=== PATIENT | male | born 1935 | race Caucasian/White ===

== ENCOUNTER → 2018-05-13 | Outpatient (CLI) | payer MEDICARE, OTHER ==
[~2018-05-13] MED LIST: AMLO5 PO; B/P MED; EAR DROPS; HYDACE5 PO; OXYACE5T PO; TRIHYD253B PO; WATER PILL
== END | disposition home or self-care (01) ==
LOC: LAB SHORT 18:24 → LAB EV 18:24
DX: R31.9 Hematuria, unspecified (principal)
CPT/HCPCS: 87077; 87086; 87186

== ENCOUNTER → 2019-07-21 | Outpatient (CLI) | payer MEDICARE, OTHER ==
[2019-07-21 10:06] LABS: BASOPHILS PERCENT AUTO 1 % (0-2); EOSINOPHILS ABSOLUTE AUTO 0.37 K/mm3 (0.00-0.68); EOSINOPHILS PERCENT AUTO 4 % (0-6); Hematocrit 49.7 % (37.0-53.0); Hemoglobin 16.1 g/dL (13.5-17.5); IMMATURE GRAN ABSOLUTE AUTO 0.03 K/mm3 (0.00-0.10); IMMATURE GRAN PERCENT AUTO 0 % (0-1); LYMPHOCYTES ABSOLUTE AUTO 2.38 K/mm3 (0.84-5.20); LYMPHOCYTES PERCENT AUTO 26 % (21-46); MONOCYTES ABSOLUTE AUTO 0.84 K/mm3 (0.16-1.47); MONOCYTES PERCENT AUTO 9 % (4-13); Mean Corpuscular HGB Conc 32.4 g/dL (31.5-36.5); Mean Corpuscular Volume 96 fL (80-100); Mean Platelet Volume 10.5 fL (9.1-12.4); NEUTROPHILS ABSOLUTE AUTO 5.58 K/mm3 (1.96-9.15); NEUTROPHILS PERCENT AUTO 60 % (41-73); Platelet Count 292 K/mm3 (150-400); RDW Coefficient Variation 13.8 % (11.7-14.2); RDW Standard Deviation 48.2 fL (35.1-46.3); Red Blood Cell Count 5.19 M/mm3 (4.30-5.90)
[2019-07-21 10:14] LABS: Bun/Creatinine Ratio 14.4 (12.0-20.0); Calcium, Blood 8.4 mg/dL (8.5-10.1); Creatinine, Blood 1.25 mg/dL (0.60-1.20)
== END | disposition home or self-care (01) ==
LOC: LAB EV 09:32 → LAB SHORT 09:32
PROVIDERS: Family Medicine
DX: R60.9 Edema, unspecified (principal)
CPT/HCPCS: 80048; 85025

== ENCOUNTER → 2020-06-10 | Outpatient (CLI) | payer MEDICARE, OTHER | LOC: LAB SHORT 11:20 | DX: L82.1 Other seborrheic keratosis (principal); L57.8 Other skin changes due to chronic exposure to nonionizing radiation | CPT/HCPCS: 88305 ==

== ENCOUNTER → 2021-01-02 | Outpatient (CLI) | payer OTHER | END | disposition home or self-care (01) | LOC: LAB SHORT 13:24 → LAB 13:24 | DX: R22.40 Localized swelling, mass and lump, unspecified lower limb (principal) | CPT/HCPCS: 83880 ==

== ENCOUNTER → 2021-06-23 | Outpatient (CLI) | payer OTHER | END | disposition home or self-care (01) | LOC: LAB 15:47 → LAB SHORT 15:47 | DX: R31.0 Gross hematuria (principal) | CPT/HCPCS: 87077; 87086; 87186 ==

== ENCOUNTER → 2021-07-10 | Outpatient (CLI) | payer OTHER | END | disposition home or self-care (01) | LOC: PLD 14:51 → LAB SHORT 14:51 → LAB 14:51 | DX: C44.612 Basal cell carcinoma of skin of right upper limb, including shoulder (principal) | CPT/HCPCS: 88305 ==

== ENCOUNTER → 2021-07-24 | Outpatient (CLI) | payer OTHER | END | disposition home or self-care (01) | LOC: LAB 12:24 → LAB SHORT 12:24 | DX: L57.0 Actinic keratosis (principal) | CPT/HCPCS: 88305 ==

== ENCOUNTER → 2021-08-12 | Outpatient (CLI) | payer OTHER | END | disposition home or self-care (01) | LOC: LAB SHORT 08:08 → PLD 08:08 | DX: L57.0 Actinic keratosis (principal); L57.8 Other skin changes due to chronic exposure to nonionizing radiation | CPT/HCPCS: 88305 ==

== ENCOUNTER → 2023-02-16 | Outpatient (CLI) | payer OTHER | LOC: LAB 14:25 → LAB SHORT 14:25 | DX: L08.0 Pyoderma (principal) | CPT/HCPCS: 87070; 87205 ==

== ENCOUNTER 2024-06-02 08:51 | Inpatient (IN) | payer OTHER ==
[~2024-06-02] VITALS: Ht 182.9 cm; Wt 109.9 kg
[2024-06-02] MEDS ORDERED: Ibuprofen 600 MG Tab PO ONE (09:30)
[2024-06-02] MEDS ORDERED: Acetaminophen 500 MG Tab PO ONE (09:45)
[2024-06-02 10:01] LABS: BASOPHILS ABSOLUTE AUTO 0.09 K/mm3 (0.00-0.23); BASOPHILS PERCENT AUTO 1 % (0-2); EOSINOPHILS ABSOLUTE AUTO 0.35 K/mm3 (0.00-0.68); EOSINOPHILS PERCENT AUTO 2 % (0-6); Hemoglobin 13.5 g/dL (13.5-17.5); IMMATURE GRAN ABSOLUTE AUTO 0.06 K/mm3 (0.00-0.10); IMMATURE GRAN PERCENT AUTO 0 % (0-1); LYMPHOCYTES ABSOLUTE AUTO 1.86 K/mm3 (0.84-5.20); LYMPHOCYTES PERCENT AUTO 12 % (21-46); MONOCYTES ABSOLUTE AUTO 1.02 K/mm3 (0.16-1.47); MONOCYTES PERCENT AUTO 7 % (4-13); Mean Corpuscular HGB 31.4 pg (26.0-34.0); Mean Corpuscular HGB Conc 33.8 g/dL (31.5-36.5); Mean Corpuscular Volume 93 fL (80-100); Mean Platelet Volume 10.2 fL (9.1-12.4); NEUTROPHILS ABSOLUTE AUTO 11.63 K/mm3 (1.96-9.15); NEUTROPHILS PERCENT AUTO 78 % (41-73); Platelet Count 372 K/mm3 (150-400); RDW Coefficient Variation 13.3 % (11.7-14.2); RDW Standard Deviation 45.4 fL (35.1-46.3); White Blood Cell Count 15.01 K/mm3 (4.00-11.30)
[2024-06-02 10:46] LABS: Uric Acid, Blood 9.3 mg/dL (3.5-7.2)
[2024-06-02 10:50] LABS: Albumin, Blood 2.7 g/dL (3.4-5.0); Albumin/Globulin Ratio 0.5 (0.8-1.8); Bilirubin, Total 0.8 mg/dL (0.1-1.0); Bun/Creatinine Ratio 16.2 (12.0-20.0); Calcium, Blood 8.1 mg/dL (8.5-10.1); Creatinine, Blood 8.32 mg/dL (0.60-1.20); Potassium, Blood 4.2 mmol/L (3.5-5.5); Total Protein, Blood 7.7 g/dL (6.4-8.2)
[2024-06-02] MEDS ORDERED: HYDROcodone 5-APAP 325 TAB PO PRN (13:00)
[2024-06-02] MEDS ORDERED: NS 1,000 ML IV SCH (13:05)
[2024-06-02] MEDS ORDERED: NS 1,000 ML IV ONE (14:06)
[2024-06-02 16:14] VITALS: BP 153/91
[2024-06-02 17:50] LABS: Albumin, Blood 2.6 g/dL (3.4-5.0); Anion Gap 14 mmol/L (3-11); Blood Urea Nitrogen 149 mg/dL (8-24); Bun/Creatinine Ratio 17.3 (12.0-20.0); CO2, Blood 24 mmol/L (21-32); Calcium, Blood 8.3 mg/dL (8.5-10.1); Chloride, Blood 104 mmol/L (98-108); Creatinine, Blood 8.62 mg/dL (0.60-1.20); Glomerular Filtration Rate 5 (60-); Glucose, Blood 136 mg/dL (70-99); Phosphorus, Blood 8.9 mg/dL (2.5-4.9); Potassium, Blood 4.1 mmol/L (3.5-5.5); Sodium, Blood 138 mmol/L (136-145)
[2024-06-02 18:14] LABS: Influenza A, PCR NEGATIVE (NEGATIVE); Influenza B, PCR NEGATIVE (NEGATIVE); Resp Syncytial Virus, PCR NEGATIVE (NEGATIVE); SARS-Cov-2 (COVID-19) PCR, MMC NEGATIVE (NEGATIVE)
--- NOTE | 2024-06-02 18:29 | NUR ---
PT ADMITTED TODAY FROM ER. DR. LOPEZ FOLLOWING. ROY PLACED D/T RETENTION, HEMATURIA NOTED. 24 HOUR URINE COLLECTION BEGAN AT 1730. SR IN 80S ON TELE. PT C/O R ANKLE PAIN AND BACK PAIN, REFUSED PAIN MEDICATIONS. PT A&OX4, QUILEUTE. 1 LOOSE STOOL AT TRANSFER, HAT PLACED IN TOILET FOR STOOL SAMPLE WITH NEXT BM. PT 1PA WITH FWW TO TOILET. PRODUCTIVE COUGH NOTED, FLU, COVID, AND RSV NEGATIVE. PT ORIENTED TO ROOM, CALL LIGHT IN REACH.
[2024-06-02 19:58] VITALS: BP 140/78
[2024-06-03 00:03] VITALS: BP 141/79
--- NOTE | 2024-06-03 05:25 | NUR ---
SHIFT SUMMARY ADMITTED FOR ACUTE RENAL FAILURE. FULL CODE. IV FLUID INFUSING. ROY IN PLACE. 24 HOUR URINE PROTEIN COLLECTION IN PROCESS. TELEMETRY: NSR @ [address] LOPEZ IS RENAL CONSULT. HE IS A&O X4, STANDBY ASSIST W/FWW. ON RA. RENAL DIET.
[2024-06-03 05:30] VITALS: BP 127/79
[2024-06-03 05:43] LABS: Hematocrit 34.8 % (37.0-53.0); Hemoglobin 11.7 g/dL (13.5-17.5)
[2024-06-03 06:12] LABS: Magnesium, Blood 2.4 mg/dL (1.6-2.4)
[2024-06-03 06:29] LABS: Albumin, Blood 2.4 g/dL (3.4-5.0); Anion Gap 15 mmol/L (3-11); Blood Urea Nitrogen 139 mg/dL (8-24); Bun/Creatinine Ratio 16.4 (12.0-20.0); CO2, Blood 19 mmol/L (21-32); Calcium, Blood 7.7 mg/dL (8.5-10.1); Chloride, Blood 105 mmol/L (98-108); Glomerular Filtration Rate 6 (60-); Glucose, Blood 120 mg/dL (70-99); Potassium, Blood 3.9 mmol/L (3.5-5.5); Sodium, Blood 135 mmol/L (136-145)
[2024-06-03 06:30] LABS: Creatinine, Blood 8.49 mg/dL (0.60-1.20)
[2024-06-03 07:01] LABS: BASOPHILS ABSOLUTE AUTO 0.07 K/mm3 (0.00-0.23); BASOPHILS PERCENT AUTO 1 % (0-2); EOSINOPHILS ABSOLUTE AUTO 0.41 K/mm3 (0.00-0.68); EOSINOPHILS PERCENT AUTO 4 % (0-6); Hematocrit 34.7 % (37.0-53.0); Hemoglobin 11.6 g/dL (13.5-17.5); IMMATURE GRAN ABSOLUTE AUTO 0.05 K/mm3 (0.00-0.10); IMMATURE GRAN PERCENT AUTO 0 % (0-1); LYMPHOCYTES ABSOLUTE AUTO 2.04 K/mm3 (0.84-5.20); LYMPHOCYTES PERCENT AUTO 18 % (21-46); MONOCYTES ABSOLUTE AUTO 1.06 K/mm3 (0.16-1.47); MONOCYTES PERCENT AUTO 9 % (4-13); Mean Corpuscular HGB 30.9 pg (26.0-34.0); Mean Corpuscular HGB Conc 33.4 g/dL (31.5-36.5); Mean Corpuscular Volume 92 fL (80-100); Mean Platelet Volume 10.5 fL (9.1-12.4); NEUTROPHILS PERCENT AUTO 69 % (41-73); Platelet Count 340 K/mm3 (150-400); RDW Coefficient Variation 13.2 % (11.7-14.2); RDW Standard Deviation 45.1 fL (35.1-46.3); Red Blood Cell Count 3.76 M/mm3 (4.30-5.90); White Blood Cell Count 11.63 K/mm3 (4.00-11.30)
[2024-06-03 07:28] VITALS: BP 128/99
[2024-06-03] MEDS ORDERED: Tamsulosin HCl 0.4 MG Cap PO SCH (09:00)
[2024-06-03] MEDS ORDERED: AmLODIPine Besylate 5 MG Tab PO SCH (09:00)
[2024-06-03] MEDS ORDERED: Heparin Sodium,Porcine 5,000 UNIT/0.5 ML SDV SC SCH (09:00)
[2024-06-03] MEDS ORDERED: FentaNYL Citrate 50 MCG/ML 2 ML Injection IV PRN (10:55)
[2024-06-03] MEDS ORDERED: Calcium Acetate 667 MG Gel Cap PO SCH (12:30)
[2024-06-03 16:26] VITALS: BP 137/91
--- NOTE | 2024-06-03 18:50 | NUR ---
PT ADMITTED 06/02/24 FOR [facility]. ROY IN PLACE DRAINING PINK/RED URINE, 24 HOUR URINE COLLECTION IN PROCESS TO END AT 0540. DR. LOPEZ IS HRIS DEVELOPER CONSULTING. IV FLUIDS INFUSING AT 75/HR. PT AxoX4, VSS, RA, SR AT 80 WITH PVC.
[2024-06-03 19:54] VITALS: BP 136/78
[2024-06-03] MEDS ORDERED: Sodium Bicarbonate 650 MG Tab PO SCH (21:00)
[2024-06-03 23:40] VITALS: BP 132/79
[2024-06-04 03:28] VITALS: BP 131/75
[2024-06-04 04:44] LABS: Hematocrit 34.3 % (37.0-53.0); Hemoglobin 11.8 g/dL (13.5-17.5)
[2024-06-04 05:21] LABS: Magnesium, Blood 2.3 mg/dL (1.6-2.4)
--- NOTE | 2024-06-04 05:25 | NUR ---
SHIFT SUMMARY NOC PT A/O X 4. PLEASANT AND COOPERATIVE WITH CARE. VSS. PT HAS ROY IN PLACE AND 24 HR URINE COLLECTION RESULTS PENDING, URINE STILL PINK/RED IN COLOR. PT HEPARIN HELD AND DC PER DR LOPEZ. PT ON TELE SINUS RHYTHM/BBB IN 'S. PT PAIN HAS BEEN TOLERABLE 06/08 AND DECLINING NEED FOR PAIN RX. PT R ANKLE STILL SWOLLEN ON BOTH SIDES IVF NS @ 75 ML/HR. PT CURRENTLY RESTING WITH BED IN LOWEST POSITION, AND CALL LIGHT WITHIN REACH.
[2024-06-04 05:44] LABS: Albumin, Blood 2.2 g/dL (3.4-5.0); Anion Gap 15 mmol/L (3-11); Blood Urea Nitrogen 133 mg/dL (8-24); Bun/Creatinine Ratio 16.2 (12.0-20.0); CO2, Blood 18 mmol/L (21-32); Calcium, Blood 7.5 mg/dL (8.5-10.1); Chloride, Blood 106 mmol/L (98-108); Creatinine, Blood 8.23 mg/dL (0.60-1.20); Glomerular Filtration Rate 6 (60-); Glucose, Blood 127 mg/dL (70-99); Potassium, Blood 4.1 mmol/L (3.5-5.5); Sodium, Blood 135 mmol/L (136-145)
[2024-06-04 07:21] VITALS: BP 151/81
[2024-06-04] MEDS ORDERED: Sodium Bicarb 8.4% Inj 100 MEQ in Sodium Chloride 0.45% 1,000 ML IV SCH (09:30)
--- NOTE | 2024-06-04 12:37 | NUR ---
NOTE: THIS RN NOTIFIED BY GARETT [employer] AT 1238. PER GARETT, SHE REVEIEWED PATIENT RATE/RHYTHM STRIPS AND FOUND OUT THAT PATIENT CONVERTED TO A-FIB AT 1030 HR IN THE LOW 110'S BPM. NOTIFIED DR. BALTAZAR, NO NEW ORDERS AT THIS TIME.
[2024-06-04 16:42] LABS: BASOPHILS ABSOLUTE AUTO 0.06 K/mm3 (0.00-0.23); BASOPHILS PERCENT AUTO 0 % (0-2); EOSINOPHILS ABSOLUTE AUTO 0.36 K/mm3 (0.00-0.68); EOSINOPHILS PERCENT AUTO 2 % (0-6); Hematocrit 35.9 % (37.0-53.0); IMMATURE GRAN ABSOLUTE AUTO 0.09 K/mm3 (0.00-0.10); IMMATURE GRAN PERCENT AUTO 1 % (0-1); LYMPHOCYTES ABSOLUTE AUTO 2.84 K/mm3 (0.84-5.20); LYMPHOCYTES PERCENT AUTO 17 % (21-46); MONOCYTES ABSOLUTE AUTO 1.13 K/mm3 (0.16-1.47); MONOCYTES PERCENT AUTO 7 % (4-13); Mean Corpuscular HGB 30.9 pg (26.0-34.0); Mean Corpuscular HGB Conc 33.4 g/dL (31.5-36.5); Mean Corpuscular Volume 93 fL (80-100); Mean Platelet Volume 10.2 fL (9.1-12.4); NEUTROPHILS ABSOLUTE AUTO 12.06 K/mm3 (1.96-9.15); NEUTROPHILS PERCENT AUTO 73 % (41-73); Platelet Count 381 K/mm3 (150-400); RDW Coefficient Variation 13.2 % (11.7-14.2); RDW Standard Deviation 44.3 fL (35.1-46.3); Red Blood Cell Count 3.88 M/mm3 (4.30-5.90); White Blood Cell Count 16.54 K/mm3 (4.00-11.30)
[2024-06-04 18:29] VITALS: BP 156/99
--- NOTE | 2024-06-04 18:42 | NUR ---
SHIFT SUMMARY: PATIENT A/OX4, PLEASANT AND COOPERATIVE c CARE. PATIENT REPORTS CHEST PRESSURE D/T CHEST CONGESTIONS AND COUGHING A LOT, BUT DENIES CP T/O SHIFT . PATIENT ON TELE, AFIB HR IN THE 110'S-120'S BPM, TACH UP TO 130'S TO 150'S BRIEFLY AND BACK DOWN TO 110'S BPM. DR. BALTAZAR NOTIFIED. AT AROUND 1400'S PATIENT SAT UP ON THE EOB, ROY STARTED LEAKING, DRAINING MAROON COLOR URINE c LARGE AMOUNT OF CLOTS. NOTIFIED DR. BALTAZAR, RECEIVED ORDER TO START CBI. PATIENT ROY REMOVED AND CHANGED TO 18 FR, 3 WAY ROY c 30 MLS BALLOON FOR CBI PER ORDER. PATIENT REPORTS PRESSURE, PAIN AND DISCOMFORT TO SUPRAPUBIC AREA/PENIS. PER PATIENT "I FEEL LIKE I STILL NEED TO PEE." PERFORMED BLADDER SCAN, APPEARS 111 MLS IN BLADDER. NOTIFIED DR. BALTAZAR AND HE DID ROUND THE PATIENT AROUND 1600'S, RECEIVED VO FOR STAT BLADDER US. PATIENT BLADDER ULTRASOUND DONE, AWAITING FOR RESULT. PATIENT REPORTS PAIN TO "PENIS", MEDICATED FOR PAIN PER EMAR c MOD EFFECT. PATIENT [address] WAY ROY c CBI, PATENT DRAINING RED COLOR URINE c NO CLOTS AT THIS TIME. BEDSIDE REPORTS GIVEN TO ARNULFO CEDEÑO. CALL LIGHT IN REACH.
--- NOTE | 2024-06-04 19:43 | NUR ---
SPOKE WITH ASIA SILK SCREEN ETCHER - HOSPITALIST CONCERNING PT'S CBI AND DISCOMFORT. REQUESTED CONSIDERATION OF B AND O SUPPUSITORY FOR PT. PENDING ORDERS.
[2024-06-04] MEDS ORDERED: Belladonna Alkaloids/Opium 60 MG Sup PR ONE (20:55)
[2024-06-04 23:46] VITALS: BP 139/88
[2024-06-05] VITALS (16 sets, daily range): BP systolic 115–157; BP diastolic 66–93
[2024-06-05] MEDS ORDERED: Guaifenesin/Dextromethorphan Syrup 5 ML UDC PO PRN (02:15)
[2024-06-05] MEDS ORDERED: Diazepam 5 MG / ML 2ML SYR IV ONE (02:45)
[2024-06-05] MEDS ORDERED: FentaNYL Citrate 50 MCG/ML 2 ML Injection IV PRN (02:46)
--- NOTE | 2024-06-05 05:22 | NUR ---
SHIFT SUMMARY NOC PT A/O X 4. PLEASANT AND COOPERATIVE WITH CARE. VSS. AT BEGINNING OF SHIFT PT WAS DIAPHORETIC AND CLAMMY IN APPEARANCE AND HAD C/O NOT PRESSURE IN BLADDER. PT BEGAN CBI YESTERDAY. DISCUSSED WITH MOTOR HOTEL MANAGER AND CBI CLAMPED FOR 5 MINUTES AND PT BLADDER SCANNED AND FOUND 523 ML. MANUAL SYRINGE IRRIGATION PERFORMED TO DISLODGE BLOOD CLOTS, BUT WAS UNABLE TO DUE TO 18 HONG KONGER CATHETER. 20 HONG KONGER CATHETER INSERTED AND BLOOD CLOTS WERE ABLE TO BE DISLODGED WITH AGRESSIVE IRRIGATION, PT WAS IN DISCOMFORT AND HAD C/O OF BLADDER SPASMS. HOSPITALIST NOTIFIED AND SPASMS AND ALSO OF RESULTS OF BLADDER US PERFORMED IN AFTERNOON THAT SHOWED NEW HEMMORHAGIC FLUID >1500 ML. MOTOR HOTEL MANAGER RECOMMENDED BELLADONNA & OPIUM SUPPOSITORIES TO RELIEVE MUSCHLE SPASMS AND RELAYED THIS TO HOSPITALIST WHO PUT IN ONE TIME ORDER. B&D SUPPOSITORY PROVIDED RELIEF. BLOOD CLOTS HAVE BEEN DISLODGED MULTIPLE TIMES DURING SHIFT, WHEN PT REPORTS SEVERE DISCOMFORT IN BLADDER. PT MEDICATED FOR BLADDER PAIN AND GIVEN ONE TIME DOSE OF DIAZEPAM IV 2.5 MG FOR SLEEP AND SPASMS. ON TELE AFIB IN 80'S, BUT CONVERTED BACK TO SINUS RHYTHM IN 70'S THIS AM. 1/2 NS BICARB INFUSING @ 50 ML/HR. PT CURRENTLY RESTING WITH BED IN LOWEST POSITION, AND CALL LIGHT WITHIN REACH.
[2024-06-05 06:02] LABS: Hemoglobin 10.6 g/dL (13.5-17.5)
[2024-06-05 06:52] LABS: Magnesium, Blood 2.5 mg/dL (1.6-2.4)
[2024-06-05 06:57] LABS: Albumin, Blood 2.3 g/dL (3.4-5.0); Anion Gap 15 mmol/L (3-11); Blood Urea Nitrogen 133 mg/dL (8-24); Bun/Creatinine Ratio 14.1 (12.0-20.0); CO2, Blood 20 mmol/L (21-32); Calcium, Blood 8.2 mg/dL (8.5-10.1); Chloride, Blood 104 mmol/L (98-108); Cholesterol 91 mg/dL (50-200); Creatinine, Blood 9.41 mg/dL (0.60-1.20); Glomerular Filtration Rate 5 (60-); Glucose, Blood 197 mg/dL (70-99); Phosphorus, Blood 8.1 mg/dL (2.5-4.9); Potassium, Blood 4.6 mmol/L (3.5-5.5); Sodium, Blood 134 mmol/L (136-145); Triglycerides 81 mg/dL (30-160)
--- NOTE | 2024-06-05 07:35 | NUR ---
NOTIFIED DR LOPEZ OF CRITICAL CREATNINE 9.4, AND PHOSPHORUS 8.1. DR LOPEZ WANTS IR CONSULT WITH DR GIBBONS FOR PERM CATH PLACEMENT AND DIALYSIS FOR TODAY. NURSE TO CONTACT DIALYSIS NURSE ONCE PERM CATH PLACED. IVF ALSO DC AND PT TO BE MADE NPO.
[2024-06-05] MEDS ORDERED: NS 250 ML IV ONE (11:04)
[2024-06-05] MEDS ORDERED: NS 500 ML IV ONE (11:04)
[2024-06-05] MEDS ORDERED: Heparin Sodium 1000 Units/ML 10ML MDV ONE ×2 (11:04→14:56)
[2024-06-05] MEDS ORDERED: NS 1,000 ML IV ONE (14:15)
[2024-06-05] MEDS ORDERED: Midazolam HCl 1MG / ML 2ML Vial ONE (14:15)
[2024-06-05] MEDS ORDERED: FentaNYL Citrate 50 MCG/ML 2 ML Injection ONE (14:15)
--- NOTE | 2024-06-05 14:26 | NUR ---
TO [facility] VIA BED FOR DIALYSIS CATHETER PLACEMENT
--- NOTE | 2024-06-05 17:33 | NUR ---
SHIFT SUMMARY: PT A&O X4. PLEASANT AND COOPERATIVE WITH CARE. CBI CONTINUED THIS SHIFT WIDE OPEN. PER DR. LOPEZ, PT TO GET PERMACATH TODAY THEN NEEDING DIALYSIS POST PLACEMENT. SPOKE WITH DR. HILLIARD PRIOR TO PERMACATH INSERTION STATING HE WOULD LIKE CT ABDOMEN COMPLETED. STAT ORDER PLACED AND COMPLETED SHOWING LARGE AMOUNT OF HEMATOMA/HEMORRHAGE. SMALL CLOTS NOTED FROM ROY THIS SHIFT BUT MOSTLY DRAINING CLEAR ONCE CBI IS WIDE OPEN. PT PLACED ON 2L THIS SHIFT D/T 02 IN HIGH 80'S TO LOW 90'S. DIALYSIS COMPLETED WITH ONE LITER OFF. CALL LIGHT IN REACH. BED IN LOWEST POSITION. WILL RESTART CBI ONCE PT RETURNS.
[2024-06-05] MEDS ORDERED: Lidocaine 2% Jelly Uro-Jet UR PRN (19:40)
[2024-06-06] VITALS (18 sets, daily range): BP systolic 94–158; BP diastolic 54–95
--- NOTE | 2024-06-06 05:58 | NUR ---
PT CBI CONTINUES TO BE WIDE OPEN. NO CLOTS DURING SHIFT. COLORING OF URINE HAS DARKENED. OUTPUT CHARTED, SEE I&O CHARTING. VSS. TELEMETRY NSR RATE IN THE 80S THROUGHOUT SHIFT.
[2024-06-06] MEDS ORDERED: NS 1,000 ML BAG IR SCH (07:35)
[2024-06-06 07:59] LABS: BASOPHILS PERCENT AUTO 0 % (0-2); EOSINOPHILS ABSOLUTE AUTO 0.12 K/mm3 (0.00-0.68); EOSINOPHILS PERCENT AUTO 0 % (0-6); Hematocrit 30.2 % (37.0-53.0); Hemoglobin 10.3 g/dL (13.5-17.5); IMMATURE GRAN ABSOLUTE AUTO 0.25 K/mm3 (0.00-0.10); IMMATURE GRAN PERCENT AUTO 1 % (0-1); LYMPHOCYTES ABSOLUTE AUTO 1.39 K/mm3 (0.84-5.20); LYMPHOCYTES PERCENT AUTO 5 % (21-46); MONOCYTES ABSOLUTE AUTO 1.31 K/mm3 (0.16-1.47); MONOCYTES PERCENT AUTO 4 % (4-13); Mean Corpuscular HGB 31.4 pg (26.0-34.0); Mean Corpuscular HGB Conc 34.1 g/dL (31.5-36.5); Mean Corpuscular Volume 92 fL (80-100); Mean Platelet Volume 10.4 fL (9.1-12.4); NEUTROPHILS ABSOLUTE AUTO 27.57 K/mm3 (1.96-9.15); NEUTROPHILS PERCENT AUTO 90 % (41-73); Platelet Count 416 K/mm3 (150-400); RDW Coefficient Variation 13.1 % (11.7-14.2); RDW Standard Deviation 44.3 fL (35.1-46.3); Red Blood Cell Count 3.28 M/mm3 (4.30-5.90); White Blood Cell Count 30.74 K/mm3 (4.00-11.30)
[2024-06-06 08:29] LABS: Bun/Creatinine Ratio 12.2 (12.0-20.0); Calcium, Blood 7.9 mg/dL (8.5-10.1); Creatinine, Blood 8.66 mg/dL (0.60-1.20); Potassium, Blood 4.5 mmol/L (3.5-5.5)
[2024-06-06] MEDS ORDERED: Bumetanide 1 MG Tab PO SCH (09:00)
[2024-06-06] MEDS ORDERED: Piperacillin/Tazobactam Sod 2.25 GM in NS 50 ML IV SCH (09:29)
--- NOTE | 2024-06-06 15:30 | NUR ---
CONTINUOUS BLADDER IRRIGATION TOTAL INPUT MY SHIFT 6100 AND TOTAL OUTPUT WAS 7200
--- NOTE | 2024-06-06 15:30 | NUR ---
SHIFT SUMMARY PATIENT WAS SENT DOWN FROM MEDICAL FLOOR DUE TO INCREASED O2 NEEDS. HE IS A0X4 ABLE TO MAKE HIS NEEDS KNOWN. HE DENIES CHEST PAIN. HE DOES HAVE SOB REQUIRING 8-10L NC TO MAINTAIN HIS O2 SATS ABOVE 92%. HE WAS ON THE CONTINUOUS BLADDER IRRIGATION AND IT WAS ADJUSTED TO KEEP THE URINE OUTPUT LIGHT PINK. HE HAD ORDER TO BE TRANSPORTED TO [facility] [place] [facility] [phone] [place] WILL GO INTO ROOM 480. ALL QUESTIONS WERE ANSWERED AND OUR PHONE NUMBER WAS GIVEN IF THERE WAS ANY QUESTIONS
[2024-06-06] MEDS ORDERED: Piperacillin/Tazobactam Sod 2.25 GM in NS 50 ML IV ONE (16:00)
--- NOTE | 2024-06-06 19:28 | NUR ---
SHIFT SUMMARY PATIENT WAS SENT DOWN FROM MEDICAL FLOOR DUE TO INCREASED O2 NEEDS. HE IS A0X4 ABLE TO MAKE HIS NEEDS KNOWN. HE DENIES CHEST PAIN. HE DOES HAVE SOB REQUIRING 8-10L NC TO MAINTAIN HIS O2 SATS ABOVE 92%. HE WAS ON THE CONTINUOUS BLADDER IRRIGATION AND IT WAS ADJUSTED TO KEEP THE URINE OUTPUT LIGHT PINK. HE HAD ORDER TO BE TRANSP[place] [facility] [place] [facility] [place] [facility] [place] WILL GO INTO ROOM 480. ALL QUESTIONS WERE ANSWERED AND OUR PHONE NUMBER WAS GIVEN IF THERE WAS ANY QUESTIONS
[2024-06-06] MEDS ORDERED: Piperacillin/Tazobactam Sod 4.5 GM in NS 100 ML IV SCH (21:00)
[2024-06-07 14:47] LABS: GBM, IGG MULTIPLEX BEAD ASSAY 0 AU/mL (0-19); MYELOPEROXIDASE (MPO) AB,IGG 0 AU/mL (0-19); SERINE PROTEINASE 3 PR3 AB,IGG 0 AU/mL (0-19)
[2024-06-08 10:10] LABS: ANA PATTERN Speckled; ANTINUCLEAR AB (ANA),HEP-2,IGG Detected (<1:80)
[2024-06-08 15:41] LABS: HEPATITIS B SURFACE ANTIGEN Negative (Negative)
[2024-06-08 16:09] LABS: HEPATITIS B SURFACE ANTIBODY <3.10 IU/L
[2024-06-08 16:18] LABS: HBV CORE ANTIBODIES,TOTAL Negative (Negative)
== END 2024-06-06 16:04 | disposition short-term general hospital (02) | DRG 673 ==
LOC: ER 08:51 → ERHOLD 13:02 → MEDS 13:02 → PCU 06-06 11:59
PROVIDERS: Emergency Medicine; Family Medicine; Internal Medicine Nephrology; ADMIT Internal Medicine
PROC: 5A1D70Z Performance of Urinary Filtration, Intermittent, Less than 6 Hours Per Day (ICD-10-PCS; principal; 2024-06-05)
PROC: 0T9B70Z Drainage of Bladder with Drainage Device, Via Natural or Artificial Opening (ICD-10-PCS; 2024-06-05)
PROC: 0JH63XZ Insertion of Tunneled Vascular Access Device into Chest Subcutaneous Tissue and Fascia, Percutaneous Approach (ICD-10-PCS; 2024-06-05)
PROC: 02HV33Z Insertion of Infusion Device into Superior Vena Cava, Percutaneous Approach (ICD-10-PCS; 2024-06-05)
PROC: B5181ZA Fluoroscopy of Superior Vena Cava using Low Osmolar Contrast, Guidance (ICD-10-PCS; 2024-06-05)
PROC: 3E03329 Introduction of Other Anti-infective into Peripheral Vein, Percutaneous Approach (ICD-10-PCS; 2024-06-06)
DX: N17.9 Acute kidney failure, unspecified (principal); A41.9 Sepsis, unspecified organism; R65.20 Severe sepsis without septic shock; J18.9 Pneumonia, unspecified organism; J96.01 Acute respiratory failure with hypoxia; D62 Acute posthemorrhagic anemia; E87.1 Hypo-osmolality and hyponatremia; E87.20 Acidosis, unspecified; I50.32 Chronic diastolic (congestive) heart failure; I13.2 Hypertensive heart and chronic kidney disease with heart failure and with stage 5 chronic kidney disease, or end stage renal disease; Z99.2 Dependence on renal dialysis; N18.6 End stage renal disease; M10.9 Gout, unspecified; E11.22 Type 2 diabetes mellitus with diabetic chronic kidney disease; K21.9 Gastro-esophageal reflux disease without esophagitis; J44.9 Chronic obstructive pulmonary disease, unspecified; D63.1 Anemia in chronic kidney disease; E88.09 Other disorders of plasma-protein metabolism, not elsewhere classified; R97.20 Elevated prostate specific antigen [PSA]; E83.39 Other disorders of phosphorus metabolism; R31.0 Gross hematuria; N13.9 Obstructive and reflux uropathy, unspecified; N40.1 Benign prostatic hyperplasia with lower urinary tract symptoms; N13.30 Unspecified hydronephrosis; R33.8 Other retention of urine; D72.829 Elevated white blood cell count, unspecified; Z79.891 Long term (current) use of opiate analgesic; Z98.890 Other specified postprocedural states; Z79.899 Other long term (current) drug therapy; Z85.528 Personal history of other malignant neoplasm of kidney; Z90.5 Acquired absence of kidney; Z90.49 Acquired absence of other specified parts of digestive tract; Z86.69 Personal history of other diseases of the nervous system and sense organs
CPT/HCPCS: 0241U; 36415; 36558; 51700; 51702; 71045; 71046; 73610; 74176; 76770; 76857; 76937; 77001; 80048; 80053; 80069; 81050; 82465; 82550; 82570; 82947; 83516; 83605; 83735; 83880; 84145; 84156; 84300; 84478; 84550; 85014; 85018; 85025; 86039; 86334; 86704; 87040; 87340; 94760; 99285-25; A9270; C1750; C1769; G0103; J1644; J2250; J2543; J3010; J3360; J7030; J7040; J7050; Q9967

== ENCOUNTER → 2024-06-30 | Outpatient (CLI) | payer OTHER ==
[2024-06-30 15:35] LABS: BASOPHILS ABSOLUTE AUTO 0.08 K/mm3 (0.00-0.23); BASOPHILS PERCENT AUTO 1 % (0-2); EOSINOPHILS ABSOLUTE AUTO 0.31 K/mm3 (0.00-0.68); EOSINOPHILS PERCENT AUTO 5 % (0-6); Hematocrit 29.1 % (37.0-53.0); Hemoglobin 9.4 g/dL (13.5-17.5); IMMATURE GRAN ABSOLUTE AUTO 0.01 K/mm3 (0.00-0.10); IMMATURE GRAN PERCENT AUTO 0 % (0-1); LYMPHOCYTES PERCENT AUTO 19 % (21-46); MONOCYTES ABSOLUTE AUTO 0.68 K/mm3 (0.16-1.47); MONOCYTES PERCENT AUTO 10 % (4-13); Mean Corpuscular HGB 31.1 pg (26.0-34.0); Mean Corpuscular HGB Conc 32.3 g/dL (31.5-36.5); Mean Corpuscular Volume 96 fL (80-100); Mean Platelet Volume 10.3 fL (9.1-12.4); NEUTROPHILS ABSOLUTE AUTO 4.49 K/mm3 (1.96-9.15); NEUTROPHILS PERCENT AUTO 65 % (41-73); Platelet Count 367 K/mm3 (150-400); RDW Coefficient Variation 13.7 % (11.7-14.2); Red Blood Cell Count 3.02 M/mm3 (4.30-5.90); White Blood Cell Count 6.87 K/mm3 (4.00-11.30)
== END ==
LOC: LAB 14:51 → LAB SHORT 14:51
PROVIDERS: Physician Assistant
DX: R31.9 Hematuria, unspecified (principal)
CPT/HCPCS: 85025

== ENCOUNTER 2024-09-25 06:33 | Day surgery (SDC) | payer OTHER ==
[~2024-09-25] VITALS: Ht 182.9 cm; Wt 101.6 kg
[2024-09-25] VITALS (8 sets, daily range): BP systolic 135–192; BP diastolic 84–117
[2024-09-25] MEDS ORDERED: AVALIDE 300-121 EACH PO (07:20)
[2024-09-25] MEDS ORDERED: Calcium Carbon500 MG PO (07:20)
[2024-09-25] MEDS ORDERED: PYRI100 PO (07:21)
[2024-09-25] MEDS ORDERED: Heparin Sodium 1000 Units/ML 10ML MDV ONE (09:51)
[2024-09-25] MEDS ORDERED: NS 250 ML IV ONE (09:51)
[2024-09-25] MEDS ORDERED: Heparin Sodium 10,000 Units/ML 1ML MDV ONE (10:17)
--- NOTE | 2024-09-25 10:41 | NUR ---
Pt back from procedure to recovery room. sitting up in recliner. alert and oriented.
--- NOTE | 2024-09-25 11:15 | NUR ---
PT DIALYSIS PORT REDRESSED. C/D/I. NO BLEEDING NOTED. PRESSURE DSG APPLIED . PT AND SON VERBALIZES UNDERSTANDING WRITTEN AND VERABAL INSTRUCTIONS. PT DENIES QUESTIONS OR CONCERNS. VSS. TAYLOR.
--- NOTE | 2024-09-25 11:35 | NUR ---
PT SON HERE, PT DRESSED AND WHEELED OUT OF HOSPITAL.
== END 2024-09-25 11:35 | disposition home or self-care (01) ==
LOC: MHTC 06:33
DX: I12.0 Hypertensive chronic kidney disease with stage 5 chronic kidney disease or end stage renal disease (principal); E11.22 Type 2 diabetes mellitus with diabetic chronic kidney disease; N18.6 End stage renal disease; T82.41XA Breakdown (mechanical) of vascular dialysis catheter, initial encounter; I70.0 Atherosclerosis of aorta; I45.10 Unspecified right bundle-branch block; I71.9 Aortic aneurysm of unspecified site, without rupture; I87.2 Venous insufficiency (chronic) (peripheral); K21.9 Gastro-esophageal reflux disease without esophagitis; N40.0 Benign prostatic hyperplasia without lower urinary tract symptoms; E78.5 Hyperlipidemia, unspecified; J44.9 Chronic obstructive pulmonary disease, unspecified; Z87.891 Personal history of nicotine dependence; Z79.899 Other long term (current) drug therapy; Z88.8 Allergy status to other drugs, medicaments and biological substances; Z90.5 Acquired absence of kidney; Z99.2 Dependence on renal dialysis; Y81.1 Therapeutic (nonsurgical) and rehabilitative general- and plastic-surgery devices associated with adverse incidents
CPT/HCPCS: C1750; C1769; J1644; J7050; Q9967

== ENCOUNTER 2024-10-06 18:03 | Observation (INO) | payer OTHER ==
[~2024-10-06] VITALS: Ht 182.9 cm; Wt 99.3 kg
[~2024-10-06 18:03] MED LIST changes: +AVALIDE 300-121 EACH PO; +Calcium Carbon500 MG PO; +NS 1,000 ML IV SCH; +PYRI100 PO
[2024-10-06] MEDS ORDERED: Ondansetron HCl 2 MG / ML 2ML Vial ONE (18:34)
[2024-10-06] MEDS ORDERED: NS 1,000 ML IV ONE (18:34)
[2024-10-06 19:01] LABS: BASOPHILS ABSOLUTE AUTO 0.04 K/mm3 (0.00-0.23); BASOPHILS PERCENT AUTO 0 % (0-2); EOSINOPHILS ABSOLUTE AUTO 0.01 K/mm3 (0.00-0.68); EOSINOPHILS PERCENT AUTO 0 % (0-6); Hematocrit 34.9 % (37.0-53.0); Hemoglobin 11.1 g/dL (13.5-17.5); IMMATURE GRAN ABSOLUTE AUTO 0.19 K/mm3 (0.00-0.10); IMMATURE GRAN PERCENT AUTO 1 % (0-1); LYMPHOCYTES ABSOLUTE AUTO 1.19 K/mm3 (0.84-5.20); LYMPHOCYTES PERCENT AUTO 6 % (21-46); MONOCYTES ABSOLUTE AUTO 0.84 K/mm3 (0.16-1.47); MONOCYTES PERCENT AUTO 4 % (4-13); Mean Corpuscular HGB Conc 31.8 g/dL (31.5-36.5); Mean Corpuscular Volume 96 fL (80-100); NEUTROPHILS ABSOLUTE AUTO 17.17 K/mm3 (1.96-9.15); NEUTROPHILS PERCENT AUTO 88 % (41-73); NRBC ABSOLUTE 0.00 K/mm3 (0.00-0.02); NRBC Auto 0.0 /100 WBC (0.0-0.2); Platelet Count 275 K/mm3 (150-400); RDW Coefficient Variation 14.8 % (11.7-14.2); RDW Standard Deviation 51.9 fL (35.1-46.3)
[2024-10-06 19:24] LABS: Alanine Aminotransfer (ALT/SGP 22.0 U/L (12-78); Albumin, Blood 2.8 g/dL (3.4-5.0); Albumin/Globulin Ratio 0.7 (0.8-1.8); Anion Gap 14.0 mmol/L (3-11); Aspartate Aminotrans (AST/SGOT 29.0 U/L (12-37); Bilirubin, Total 0.4 mg/dL (0.1-1.0); Blood Urea Nitrogen 46.0 mg/dL (8-24); CO2, Blood 24.0 mmol/L (21-32); Calcium, Blood 7.9 mg/dL (8.5-10.1); Chloride, Blood 96.0 mmol/L (98-108); Creatinine, Blood 3.93 mg/dL (0.60-1.20); Globulin, Blood 3.8 g/dL (2.2-4.0); Glucose, Blood 318.0 mg/dL (70-99); Potassium, Blood 4.1 mmol/L (3.5-5.5); Sodium, Blood 130.0 mmol/L (136-145); Total Protein, Blood 6.6 g/dL (6.4-8.2)
[2024-10-06] MEDS ORDERED: Ondansetron HCl 2 MG / ML 2ML Vial IV ONE (19:40)
[2024-10-06] MEDS ORDERED: NS 1,000 ML IV SCH ×2 (19:40→23:50)
[2024-10-06] MEDS ORDERED: CefTRIAXone Sodium 2,000 MG in NS 100 ML IV ONE (22:25)
[2024-10-06] MEDS ORDERED: FentaNYL Citrate 50 MCG/ML 2 ML Injection IV ONE (22:25)
[2024-10-06] MEDS ORDERED: MetroNIDAZOLE 500MG/NS 100 ml 100 ML IV ONE (22:25)
[2024-10-07] VITALS (16 sets, daily range): BP systolic 103–128; BP diastolic 57–106
[2024-10-07 05:49] LABS: BASOPHILS ABSOLUTE AUTO 0.04 K/mm3 (0.00-0.23); BASOPHILS PERCENT AUTO 0 % (0-2); EOSINOPHILS ABSOLUTE AUTO 0.03 K/mm3 (0.00-0.68); EOSINOPHILS PERCENT AUTO 0 % (0-6); Hematocrit 32.0 % (37.0-53.0); Hemoglobin 10.3 g/dL (13.5-17.5); IMMATURE GRAN ABSOLUTE AUTO 0.08 K/mm3 (0.00-0.10); IMMATURE GRAN PERCENT AUTO 0 % (0-1); LYMPHOCYTES ABSOLUTE AUTO 2.74 K/mm3 (0.84-5.20); LYMPHOCYTES PERCENT AUTO 14 % (21-46); MONOCYTES ABSOLUTE AUTO 1.34 K/mm3 (0.16-1.47); MONOCYTES PERCENT AUTO 7 % (4-13); Mean Corpuscular HGB Conc 32.2 g/dL (31.5-36.5); Mean Corpuscular Volume 94 fL (80-100); NEUTROPHILS ABSOLUTE AUTO 15.08 K/mm3 (1.96-9.15); NEUTROPHILS PERCENT AUTO 78 % (41-73); NRBC ABSOLUTE 0.00 K/mm3 (0.00-0.02); NRBC Auto 0.0 /100 WBC (0.0-0.2); Platelet Count 210 K/mm3 (150-400); RDW Coefficient Variation 15.0 % (11.7-14.2); RDW Standard Deviation 52.3 fL (35.1-46.3)
[2024-10-07] MEDS ORDERED: Darbepoetin (Pharmacy Consult) SC SCH (06:10)
[2024-10-07 06:15] LABS: Alanine Aminotransfer (ALT/SGP 16.0 U/L (12-78); Albumin, Blood 2.7 g/dL (3.4-5.0); Albumin/Globulin Ratio 0.8 (0.8-1.8); Anion Gap 11.0 mmol/L (3-11); Aspartate Aminotrans (AST/SGOT 18.0 U/L (12-37); Bilirubin, Total 0.5 mg/dL (0.1-1.0); Blood Urea Nitrogen 49.0 mg/dL (8-24); CO2, Blood 26.0 mmol/L (21-32); Calcium, Blood 7.6 mg/dL (8.5-10.1); Chloride, Blood 101.0 mmol/L (98-108); Creatinine, Blood 4.24 mg/dL (0.60-1.20); Globulin, Blood 3.4 g/dL (2.2-4.0); Glucose, Blood 128.0 mg/dL (70-99); Potassium, Blood 4.1 mmol/L (3.5-5.5); Sodium, Blood 134.0 mmol/L (136-145); Total Protein, Blood 6.1 g/dL (6.4-8.2)
[2024-10-07] MEDS ORDERED: Insulin Human Lispro 100 Units/ML 3ML Syringe SC SCH (07:30)
[2024-10-07] MEDS ORDERED: Piperacillin/Tazobactam Sod 2.25 GM in NS 50 ML IV SCH (10:29)
[2024-10-07] MEDS ORDERED: Lactobacil 2-S.Thermo-Bifido 1 1 Cap PO SCH (21:00)
[2024-10-07] MEDS ORDERED: Heparin Sodium,Porcine 5,000 UNIT/0.5 ML SDV SC SCH (21:00)
[2024-10-08] VITALS (19 sets, daily range): BP systolic 105–130; BP diastolic 55–78
[2024-10-08 06:01] LABS: BASOPHILS ABSOLUTE AUTO 0.12 K/mm3 (0.00-0.23); BASOPHILS PERCENT AUTO 1 % (0-2); EOSINOPHILS ABSOLUTE AUTO 0.53 K/mm3 (0.00-0.68); EOSINOPHILS PERCENT AUTO 4 % (0-6); Hematocrit 28.7 % (37.0-53.0); Hemoglobin 9.1 g/dL (13.5-17.5); IMMATURE GRAN ABSOLUTE AUTO 0.05 K/mm3 (0.00-0.10); IMMATURE GRAN PERCENT AUTO 0 % (0-1); LYMPHOCYTES ABSOLUTE AUTO 2.34 K/mm3 (0.84-5.20); LYMPHOCYTES PERCENT AUTO 18 % (21-46); MONOCYTES ABSOLUTE AUTO 1.24 K/mm3 (0.16-1.47); MONOCYTES PERCENT AUTO 9 % (4-13); Mean Corpuscular HGB Conc 31.7 g/dL (31.5-36.5); Mean Corpuscular Volume 96 fL (80-100); NEUTROPHILS ABSOLUTE AUTO 8.90 K/mm3 (1.96-9.15); NEUTROPHILS PERCENT AUTO 68 % (41-73); NRBC ABSOLUTE 0.00 K/mm3 (0.00-0.02); NRBC Auto 0.0 /100 WBC (0.0-0.2); Platelet Count 190 K/mm3 (150-400); RDW Coefficient Variation 15.6 % (11.7-14.2); RDW Standard Deviation 54.8 fL (35.1-46.3)
[2024-10-08 06:25] LABS: Albumin, Blood 2.5 g/dL (3.4-5.0); Anion Gap 10 mmol/L (3-11); Blood Urea Nitrogen 41 mg/dL (8-24); CO2, Blood 28 mmol/L (21-32); Calcium, Blood 7.4 mg/dL (8.5-10.1); Chloride, Blood 100 mmol/L (98-108); Creatinine, Blood 4.00 mg/dL (0.60-1.20); Glucose, Blood 124 mg/dL (70-99); Magnesium, Blood 2.5 mg/dL (1.6-2.4); Phosphorus, Blood 5.1 mg/dL (2.5-4.9); Potassium, Blood 3.5 mmol/L (3.5-5.5); Sodium, Blood 134 mmol/L (136-145)
--- NOTE | 2024-10-08 16:27 | NUR ---
PATIENT LEFT WITH SON VIA WC. BOTH VERBALIZED UNDERSTANDING OF MEDICATION CHANGES AND FOLLOW UP APPOINTMENTS, DIALYSIS ON WEDNESDAY AND WOUND CARE.
== END 2024-10-08 14:15 | disposition home or self-care (01) ==
LOC: ER 18:03 → ERHOLD 18:04 → MEDS 18:04
PROVIDERS: Internal Medicine Nephrology; Student in an Organized Health Care Education/Training Program; ADMIT Student in an Organized Health Care Education/Training Program
DX: R55 Syncope and collapse (principal); E87.21 Acute metabolic acidosis; D72.829 Elevated white blood cell count, unspecified; K21.9 Gastro-esophageal reflux disease without esophagitis; E78.5 Hyperlipidemia, unspecified; D50.0 Iron deficiency anemia secondary to blood loss (chronic); I77.810 Thoracic aortic ectasia; N40.0 Benign prostatic hyperplasia without lower urinary tract symptoms; I13.2 Hypertensive heart and chronic kidney disease with heart failure and with stage 5 chronic kidney disease, or end stage renal disease; E11.22 Type 2 diabetes mellitus with diabetic chronic kidney disease; N18.6 End stage renal disease; I50.32 Chronic diastolic (congestive) heart failure; N17.9 Acute kidney failure, unspecified; D63.1 Anemia in chronic kidney disease; Z99.2 Dependence on renal dialysis; Z66 Do not resuscitate; Z79.899 Other long term (current) drug therapy; Z90.5 Acquired absence of kidney; Z88.8 Allergy status to other drugs, medicaments and biological substances
CPT/HCPCS: 36415; 70450; 71260; 74177; 80053; 80069; 82533; 82947; 83605; 83735; 85025; 93005; 93010; 96367; 96372; 96376; A9270; G0378; J0696; J1644; J2405; J2543; J3010; J7030; Q9967

== ENCOUNTER → 2024-11-03 | Outpatient (CLI) | payer OTHER ==
[~2024-11-03] MED LIST changes: -NS 1,000 ML IV SCH
[2024-11-03 08:54] LABS: BASOPHILS ABSOLUTE AUTO 0.09 K/mm3 (0.00-0.23); BASOPHILS PERCENT AUTO 1 % (0-2); EOSINOPHILS ABSOLUTE AUTO 0.86 K/mm3 (0.00-0.68); EOSINOPHILS PERCENT AUTO 9 % (0-6); Hematocrit 33.8 % (37.0-53.0); Hemoglobin 10.9 g/dL (13.5-17.5); IMMATURE GRAN ABSOLUTE AUTO 0.02 K/mm3 (0.00-0.10); IMMATURE GRAN PERCENT AUTO 0 % (0-1); LYMPHOCYTES ABSOLUTE AUTO 3.06 K/mm3 (0.84-5.20); LYMPHOCYTES PERCENT AUTO 31 % (21-46); MONOCYTES ABSOLUTE AUTO 0.79 K/mm3 (0.16-1.47); MONOCYTES PERCENT AUTO 8 % (4-13); Mean Corpuscular HGB Conc 32.2 g/dL (31.5-36.5); Mean Corpuscular Volume 96 fL (80-100); NEUTROPHILS ABSOLUTE AUTO 5.21 K/mm3 (1.96-9.15); NEUTROPHILS PERCENT AUTO 52 % (41-73); NRBC ABSOLUTE 0.00 K/mm3 (0.00-0.02); NRBC Auto 0.0 /100 WBC (0.0-0.2); Platelet Count 350 K/mm3 (150-400); RDW Coefficient Variation 16.1 % (11.7-14.2); RDW Standard Deviation 56.3 fL (35.1-46.3)
[2024-11-03 09:06] LABS: Alanine Aminotransfer (ALT/SGP 24.0 U/L (12-78); Albumin, Blood 3.2 g/dL (3.4-5.0); Albumin/Globulin Ratio 0.9 (0.8-1.8); Anion Gap 9.0 mmol/L (3-11); Aspartate Aminotrans (AST/SGOT 21.0 U/L (12-37); Bilirubin, Total 0.6 mg/dL (0.1-1.0); Blood Urea Nitrogen 63.0 mg/dL (8-24); CO2, Blood 30.0 mmol/L (21-32); Calcium, Blood 8.6 mg/dL (8.5-10.1); Chloride, Blood 102.0 mmol/L (98-108); Creatinine, Blood 3.62 mg/dL (0.60-1.20); Globulin, Blood 3.7 g/dL (2.2-4.0); Glucose, Blood 123.0 mg/dL (70-99); Potassium, Blood 4.0 mmol/L (3.5-5.5); Sodium, Blood 137.0 mmol/L (136-145); Total Protein, Blood 6.9 g/dL (6.4-8.2)
== END ==
LOC: LAB 07:30 → LAB SHORT 07:30
PROVIDERS: Physical Medicine & Rehabilitation
DX: S32.040A Wedge compression fracture of fourth lumbar vertebra, initial encounter for closed fracture (principal)
CPT/HCPCS: 80053; 85025

== ENCOUNTER 2025-02-05 18:33 | Observation (INO) | payer OTHER ==
[~2025-02-05] VITALS: Ht 182.9 cm; Wt 94.8 kg
[2025-02-05 19:39] LABS: BASOPHILS ABSOLUTE AUTO 0.12 K/mm3 (0.00-0.23); BASOPHILS PERCENT AUTO 1 % (0-2); EOSINOPHILS ABSOLUTE AUTO 0.41 K/mm3 (0.00-0.68); EOSINOPHILS PERCENT AUTO 3 % (0-6); Hematocrit 36.5 % (37.0-53.0); Hemoglobin 11.6 g/dL (13.5-17.5); IMMATURE GRAN ABSOLUTE AUTO 0.16 K/mm3 (0.00-0.10); IMMATURE GRAN PERCENT AUTO 1 % (0-1); LYMPHOCYTES ABSOLUTE AUTO 1.68 K/mm3 (0.84-5.20); LYMPHOCYTES PERCENT AUTO 11 % (21-46); MONOCYTES ABSOLUTE AUTO 0.81 K/mm3 (0.16-1.47); MONOCYTES PERCENT AUTO 5 % (4-13); Mean Corpuscular HGB Conc 31.8 g/dL (31.5-36.5); Mean Corpuscular Volume 97 fL (80-100); NEUTROPHILS ABSOLUTE AUTO 12.56 K/mm3 (1.96-9.15); NEUTROPHILS PERCENT AUTO 80 % (41-73); NRBC ABSOLUTE 0.02 K/mm3 (0.00-0.02); NRBC Auto 0.1 /100 WBC (0.0-0.2); RDW Coefficient Variation 13.9 % (11.7-14.2); RDW Standard Deviation 49.4 fL (35.1-46.3)
[2025-02-05 19:53] LABS: Alanine Aminotransfer (ALT/SGP 19.0 U/L (12-78); Albumin, Blood 2.4 g/dL (3.4-5.0); Albumin/Globulin Ratio 0.6 (0.8-1.8); Anion Gap 7.0 mmol/L (3-11); Aspartate Aminotrans (AST/SGOT 15.0 U/L (12-37); Bilirubin, Total 0.2 mg/dL (0.1-1.0); Blood Urea Nitrogen 59.0 mg/dL (8-24); CO2, Blood 27.0 mmol/L (21-32); Calcium, Blood 9.5 mg/dL (8.5-10.1); Chloride, Blood 103.0 mmol/L (98-108); Creatinine, Blood 2.67 mg/dL (0.60-1.20); Globulin, Blood 4.0 g/dL (2.2-4.0); Glucose, Blood 143.0 mg/dL (70-99); Potassium, Blood 4.2 mmol/L (3.5-5.5); Sodium, Blood 133.0 mmol/L (136-145); Total Protein, Blood 6.4 g/dL (6.4-8.2)
[2025-02-05 20:20] LABS: Source, Urine Straight Cath
[2025-02-05 20:25] LABS: Bilirubin, Urine Neg (Neg); Color, Urine Red (P-Yellow); Glucose Qualitative, Urine Neg (Neg); Ketones, Urine 1+ (Neg); Leukocyte Esterase, Urine 2+ (Neg); Protein, Urine 3+ (Neg); Specific Gravity, Urine 1.010 (1.003-1.022); Urobilinogen, Urine NORM (Normal)
[2025-02-05 20:31] LABS: Red Blood Cells, Urine TNTC /hpf (0-2)
[2025-02-05 20:32] LABS: Platelet Count 276 K/mm3 (150-400)
[2025-02-05] MEDS ORDERED: CefTRIAXone Sodium 1,000 MG in NS 100 ML IV ONE (21:05)
[2025-02-05] MEDS ORDERED: FLU VACC TS2025(65UP)/MF59C/PF 45 MCG/0.5 ML SYRINGE IM SCH (22:00)
[2025-02-05] MEDS ORDERED: HydrALAZINE HCl 20 MG / ML 1ML Vial IV PRN (22:05)
[2025-02-05] MEDS ORDERED: FINA5 PO (22:55)
[2025-02-05] MEDS ORDERED: TAMS.4ER PO (22:55)
[2025-02-06 00:38] VITALS: BP 186/112
[2025-02-06 03:49] VITALS: BP 162/104
[2025-02-06 06:07] LABS: BASOPHILS ABSOLUTE AUTO 0.09 K/mm3 (0.00-0.23); BASOPHILS PERCENT AUTO 1 % (0-2); EOSINOPHILS ABSOLUTE AUTO 0.21 K/mm3 (0.00-0.68); EOSINOPHILS PERCENT AUTO 1 % (0-6); Hematocrit 35.0 % (37.0-53.0); Hemoglobin 11.0 g/dL (13.5-17.5); IMMATURE GRAN ABSOLUTE AUTO 0.09 K/mm3 (0.00-0.10); IMMATURE GRAN PERCENT AUTO 1 % (0-1); LYMPHOCYTES ABSOLUTE AUTO 1.82 K/mm3 (0.84-5.20); LYMPHOCYTES PERCENT AUTO 10 % (21-46); MONOCYTES ABSOLUTE AUTO 1.17 K/mm3 (0.16-1.47); MONOCYTES PERCENT AUTO 7 % (4-13); Mean Corpuscular HGB Conc 31.4 g/dL (31.5-36.5); Mean Corpuscular Volume 94 fL (80-100); NEUTROPHILS ABSOLUTE AUTO 14.19 K/mm3 (1.96-9.15); NEUTROPHILS PERCENT AUTO 81 % (41-73); NRBC ABSOLUTE 0.00 K/mm3 (0.00-0.02); NRBC Auto 0.0 /100 WBC (0.0-0.2); Platelet Count 406 K/mm3 (150-400); RDW Coefficient Variation 13.8 % (11.7-14.2); RDW Standard Deviation 47.1 fL (35.1-46.3)
--- NOTE | 2025-02-06 06:33 | NUR ---
SHIFT SUMMARY PT A&OX3-4 AND ANSWERS QUESTIONS APPROPRIATELY. PT HERE FOR TOXIC METABOLIC ENCEPHALOPATHY. SUSPECTED UTI. BP ELEVATED, REMAINING VSS. BLOODY URINE. PT ON DIALYSIS. NO ACUTE EVENTS AT THIS TIME. PT SPENT MOST OF SHIFT IN BED RESTING WITH EYES CLOSED AND RESPIRATIONS EVEN AND UNLABORED. FALL PRECAUTIONS IN PLACE AND CALL LIGHT IN REAC.
[2025-02-06 06:37] LABS: Albumin, Blood 2.2 g/dL (3.4-5.0); Anion Gap 9 mmol/L (3-11); Blood Urea Nitrogen 61 mg/dL (8-24); CO2, Blood 26 mmol/L (21-32); Calcium, Blood 9.7 mg/dL (8.5-10.1); Chloride, Blood 104 mmol/L (98-108); Creatinine, Blood 2.70 mg/dL (0.60-1.20); Glucose, Blood 157 mg/dL (70-99); Magnesium, Blood 2.3 mg/dL (1.6-2.4); Phosphorus, Blood 2.4 mg/dL (2.5-4.9); Potassium, Blood 3.9 mmol/L (3.5-5.5); Sodium, Blood 135 mmol/L (136-145)
[2025-02-06] MEDS ORDERED: Darbepoetin (Pharmacy Consult) SC SCH (06:50)
[2025-02-06] MEDS ORDERED: Sodium Phosphate 10 MM in Dextrose 5% 250 ML IV STA (06:53)
[2025-02-06 07:40] VITALS: BP 158/98
[2025-02-06] MEDS ORDERED: Lactobacil 2-S.Thermo-Bifido 1 1 Cap PO SCH (09:00)
[2025-02-06] MEDS ORDERED: Enoxaparin 30 MG/0.3 ML SYR SC SCH (09:00)
[2025-02-06] MEDS ORDERED: LOSA25 PO (10:02)
[2025-02-06] MEDS ORDERED: OXYC5 PO (10:02)
[2025-02-06] MEDS ORDERED: ACET325 PO (10:03)
[2025-02-06 15:17] VITALS: BP 149/94
--- NOTE | 2025-02-06 16:53 | NUR ---
CCPD initiated at bedside per physician's order. PD exit site cleansed aseptically with ExSept solution; site noted with mild redness, no drainage noted. Informed Dr. Odom. Connector site cleansed with Alcavis per protocol. Tx initiated approx at 1600 with no issue.
--- NOTE | 2025-02-06 17:04 | NUR ---
SHIFT SUMMARY PT SON RELAYED THAT THE PT HAS A POLYP IN HIS BLADDER THAT IS BLEEDING. PT HAS SCHEDULE PLAN FOR REMOVAL AN OUTPT PER SON, MENDEL. DR. LOPEZ FOLLOWING TO MANAGE PERITONEAL DIALYSIS. MICONAZOLE ORDERED TO START TONIGHT. PT MEDICATED FOR PAIN WITH TYLENOL ONCE THIS SHIFT. PERITONEAL DIAYLSIS STARTED BY DIALYSIS NURSES. PT AMBULATING TO THE BATHROOM NEEDED WITH SBA. NO OTHER ACUTE CHANGES IN ASSESSMENT AT THIS TIME. VS REVIEWED. CALL LIGHT IN REACH. DENIES OTHER NEEDS AT THIS TIME.
[2025-02-06] MEDS ORDERED: HydrALAZINE HCl 20 MG / ML 1ML Vial IV PRN (17:10)
[2025-02-06] MEDS ORDERED: NS 250 ML IV PRN (20:10)
[2025-02-06] MEDS ORDERED: Miconazole Nitrate 2% 85 GM PWD TOP SCH (21:00)
[2025-02-06] MEDS ORDERED: CefTRIAXone Sodium 1,000 MG in NS 100 ML IV SCH (21:00)
[2025-02-06 21:04] VITALS: BP 141/89
[2025-02-07 04:54] VITALS: BP 169/88
[2025-02-07 05:58] LABS: BASOPHILS ABSOLUTE AUTO 0.07 K/mm3 (0.00-0.23); BASOPHILS PERCENT AUTO 0 % (0-2); EOSINOPHILS ABSOLUTE AUTO 0.49 K/mm3 (0.00-0.68); EOSINOPHILS PERCENT AUTO 3 % (0-6); Hematocrit 36.4 % (37.0-53.0); Hemoglobin 11.7 g/dL (13.5-17.5); IMMATURE GRAN ABSOLUTE AUTO 0.06 K/mm3 (0.00-0.10); IMMATURE GRAN PERCENT AUTO 0 % (0-1); LYMPHOCYTES ABSOLUTE AUTO 2.38 K/mm3 (0.84-5.20); LYMPHOCYTES PERCENT AUTO 15 % (21-46); MONOCYTES ABSOLUTE AUTO 1.11 K/mm3 (0.16-1.47); MONOCYTES PERCENT AUTO 7 % (4-13); Mean Corpuscular HGB Conc 32.1 g/dL (31.5-36.5); Mean Corpuscular Volume 94 fL (80-100); NEUTROPHILS ABSOLUTE AUTO 11.58 K/mm3 (1.96-9.15); NEUTROPHILS PERCENT AUTO 74 % (41-73); NRBC ABSOLUTE 0.00 K/mm3 (0.00-0.02); NRBC Auto 0.0 /100 WBC (0.0-0.2); Platelet Count 414 K/mm3 (150-400); RDW Coefficient Variation 14.1 % (11.7-14.2); RDW Standard Deviation 48.3 fL (35.1-46.3)
[2025-02-07 06:33] LABS: Albumin, Blood 2.2 g/dL (3.4-5.0); Anion Gap 8 mmol/L (3-11); Blood Urea Nitrogen 49 mg/dL (8-24); CO2, Blood 29 mmol/L (21-32); Calcium, Blood 10.1 mg/dL (8.5-10.1); Chloride, Blood 103 mmol/L (98-108); Creatinine, Blood 2.52 mg/dL (0.60-1.20); Glucose, Blood 147 mg/dL (70-99); Magnesium, Blood 2.4 mg/dL (1.6-2.4); Phosphorus, Blood 3.2 mg/dL (2.5-4.9); Potassium, Blood 3.8 mmol/L (3.5-5.5); Sodium, Blood 136 mmol/L (136-145)
--- NOTE | 2025-02-07 06:36 | NUR ---
PT AWAKE , ALERT, VOICING RELATIVE COMFORT UPON ENTERING ROOM. OVERNIGHT CCPD COMPLETE ORDERED. PT AESEPTICALLY DISCONNECTED AND CAPPED. TRANSFER SET SECURED IN PT'S [place]. CYCLER STRIPPED AND CLEANED. REPORT TO DR LOPEZ.
--- NOTE | 2025-02-07 06:42 | NUR ---
SHIFT SUMMARY PT A&OX4 AND ANSWERS QUESTIONS APPROPRIATELY. PT VOCALIZES PAIN AND STATES HE HAS PAIN DURING DIALYSIS. MEDICATED PER EMAR SCHEDULED AND PRN. VSS, BP ELEVATED BUT CONTROLLED. NO COMPLAINTS OF CP/PRESSURE OR SOB. URINE IS BLOODY, HX OF BLADDER POLYP. PT RECEIVED DIALYSIS DURING THE NIGHT, DISCONNECTED AROUND 0630 THIS AM. NO ACUTE EVENTS AT THIS TIME. PT SPENT MOST OF NIGHT IN BED WITH EYES CLOSED AND REPSIRATIONS EVEN AND UNLABORED. FALL PRECAUTIONS IN PLACE AND CALL LIGHT IN REACH
[2025-02-07 07:20] VITALS: BP 149/91
[2025-02-07 11:08] LABS: Automated BF WBC Count 0.050 K/mm3 (0-999)
[2025-02-07 11:37] LABS: Color, Body Fluid No color (None-Yellow)
[2025-02-07 11:49] LABS: RBC Count, Body Fluid 21 /mm3 (0-0)
[2025-02-07 12:41] LABS: Lymphocytes, Fluid 60.0 % (0.0-18.0); Monocytes/Mononuclear, Fluid 40.0 % (0.0-50.0); Total Cell Count, Body Fluid 100
[2025-02-07] MEDS ORDERED: CARV3.125 PO (13:23)
[2025-02-07] MEDS ORDERED: CEFP200 PO (13:24)
--- NOTE | 2025-02-07 13:46 | NUR ---
DISCHARGE PT AOX4, COOPERATIVE, ABLE TO MAKE NEEDS KNONW. PT IS 1 PERSON ASSIST IN ROOM. ON ROOM AIR. TOLERATING MEDICATIONS. NEW MEDS FAXED TO [employer] [facility]. IV DC'D BY DANILO. THIS RN WENT OVER DC PAPERWORK WITH PT AND FAMILY MEMBER. AUTOMATIC DRILLING MACHINE OPERATOR TRANSPORTED PT DOWN VIA WC TO PT ENTRANCE FOR DC.
== END 2025-02-07 13:43 | disposition home or self-care (01) ==
LOC: ER 18:33 → ERHOLD 18:34 → MEDS 18:34
PROVIDERS: Emergency Medicine; Internal Medicine; Internal Medicine Nephrology; ADMIT Student in an Organized Health Care Education/Training Program
DX: G92.8 Other toxic encephalopathy (principal); R31.0 Gross hematuria; R21 Rash and other nonspecific skin eruption; R82.90 Unspecified abnormal findings in urine; I12.0 Hypertensive chronic kidney disease with stage 5 chronic kidney disease or end stage renal disease; E11.22 Type 2 diabetes mellitus with diabetic chronic kidney disease; N18.6 End stage renal disease; J44.9 Chronic obstructive pulmonary disease, unspecified; D64.9 Anemia, unspecified; E83.39 Other disorders of phosphorus metabolism; E78.5 Hyperlipidemia, unspecified; Z99.2 Dependence on renal dialysis; Z79.899 Other long term (current) drug therapy; Z88.8 Allergy status to other drugs, medicaments and biological substances; Z90.5 Acquired absence of kidney
CPT/HCPCS: 36415; 70450; 71045; 80053; 80069; 81001; 82330; 83605; 83735; 84157; 85025; 87040; 87070; 87075; 87086; 87205; 89051; 93005; 93010; 96365; 96366; 96372; 96374; 96375; 96376; 97116; 97162; 99285-25; A9270; G0257; G0378; J0360; J0696; J1650; J7050; J7060

== ENCOUNTER 2025-02-27 13:27 | Emergency (ER) | payer OTHER ==
[~2025-02-27] VITALS: Ht 182.9 cm; Wt 91.6 kg
[~2025-02-27 13:27] MED LIST changes: +ACET325 PO; +CARV3.125 PO; +CEFP200 PO; +FINA5 PO; +LOSA25 PO; +OXYC5 PO; +TAMS.4ER PO
[2025-02-27 16:19] VITALS: BP 146/85
[2025-02-27] MEDS ORDERED: Neurontin 100100 MG PO (16:39)
== END 2025-02-27 16:52 | disposition home or self-care (01) ==
LOC: ER 13:27
DX: I72.4 Aneurysm of artery of lower extremity (principal); E11.9 Type 2 diabetes mellitus without complications; I10 Essential (primary) hypertension; Z79.899 Other long term (current) drug therapy; Z88.8 Allergy status to other drugs, medicaments and biological substances
CPT/HCPCS: 93926; 99283-25; A9270